=== PATIENT | female | born 1980 | race Two or more races ===

== ENCOUNTER 2020-01-19 16:46 | Emergency (ER) | payer MEDICAID ==
[~2020-01-19] VITALS: Ht 154.9 cm; Wt 75.7 kg
[~2020-01-19 16:46] MED LIST: KEFLEX500 MG ORAL; NKM; ZOFRAN ODT4 MG ORAL
[2020-01-19 17:44] VITALS: BP 114/82
[2020-01-19 17:56] LABS: BASOPHILS % (AUTO) 0.6 % (0.0-2.0); EOSINOPHILS % (AUTO) 0.5 % (0.0-3.0); HEMATOCRIT 39.2 % (37.0-47.0); HEMOGLOBIN 13.4 G/DL (12.0-16.0); LYMPHOCYTES % (AUTO) 18.6 % (20.0-45.0); MEAN CORPUSCULAR VOLUME 82 FL (80-99); MONOCYTES % (AUTO) 8.4 % (1.0-10.0); NEUTROPHILS % (AUTO) 71.9 % (45.0-75.0); PLATELET COUNT 394 K/UL (150-450); RED BLOOD COUNT 4.77 M/UL (4.20-5.40); RED CELL DISTRIBUTION WIDTH 13.1 % (11.6-14.8); WHITE BLOOD COUNT 7.5 K/UL (4.8-10.8)
[2020-01-19 18:10] LABS: ANION GAP 11 mmol/L (5-15); BLOOD UREA NITROGEN 18 mg/dL (7-18); CALCIUM 9.2 MG/DL (8.5-10.1); CARBON DIOXIDE 25 MMOL/L (21-32); CHLORIDE 103 MMOL/L (98-107); CREATININE 0.8 MG/DL (0.55-1.30); POTASSIUM 3.2 MMOL/L (3.5-5.1); SODIUM 139 MMOL/L (136-145)
[2020-01-19 18:15] LABS: ALANINE AMINOTRANSFERASE 38 U/L (12-78); ALBUMIN 3.1 G/DL (3.4-5.0); ALBUMIN/GLOBULIN RATIO 0.6 (1.0-2.7); ALKALINE PHOSPHATASE 90 U/L (46-116); ASPARTATE AMINO TRANSFERASE 26 U/L (15-37); BILIRUBIN,TOTAL 0.5 MG/DL (0.2-1.0)
[2020-01-19] MEDS ORDERED: PREDNISONE20 MG ORAL (18:57)
[2020-01-19] MEDS ORDERED: TYLENOL EXTRA500 MG ORAL (18:57)
[2020-01-19] MEDS ORDERED: ZITHROMAX250 MG ORAL (18:57)
[2020-01-19] MEDS ORDERED: VENTOLIN HFA18 GM INH (18:57)
[2020-01-19 19:00] VITALS: BP 104/90
--- NOTE | 2020-01-19 23:01 | Emergency Room Report ---
History of Present Illness General Chief Complaint: Upper Respiratory Illness Source: Patient Present Illness Allergies: Coded Allergies: No Known Allergies (Unverified , 10/29/11) COVID-19 Screening Contact w/high risk pt: No Experienced COVID-19 symptoms?: Yes COVID-19 Testing performed [employer]: Yes COVID-19 Screening: Negative COVID-19 COVID-19 Testing Source: 01/15 [place] Nursing Documentation-[facility] Past Medical History: No History, Except For Physical Exam Vital Signs Date Time Temp Pulse Resp B/P (MAP) Pulse Ox O2 Delivery O2 Flow Rate FiO2 01/19/20 17:18 98.4 91 20 114/82 (93) 93 Room Air Medical Decision Making Diagnostic Impression: Primary Impression: COVID-19 EKG Diagnostic Results Troponin ordered: Yes Rate: normal Rhythm: NSR ST Segments: no acute changes ASA given to the pt in ED: No Rhythm Strip Diag. Results EP Interpretation: yes Rhythm: NSR, no PVC's, no ectopy Last Vital Signs Date Time Temp Pulse Resp B/P (MAP) Pulse Ox O2 Delivery O2 Flow Rate FiO2 01/19/20 19:00 99.1 95 32 104/90 95 Room Air Disposition: HOME, SELF-CARE Condition: Stable Scripts Albuterol Sulfate (VENTOLIN HFA) 18 Gm Hfa.aer.ad 2 PUFFS INH EVERY 6 HOURS, #18 GM 0 Refills Prov: Alf Holguin MD 01/19/20 Acetaminophen* (TYLENOL EXTRA STRENGTH*) 500 Mg Tablet 500 MG ORAL Q8H PRN for Prn Headache/Temp > 101, #30 TAB 0 Refills Prov: Alf Holguin MD 01/19/20 Prednisone* (PREDNISONE*) 20 Mg Tablet 40 MG ORAL DAILY, #10 TAB Prov: Alf Holguin MD 01/19/20 Azithromycin* (ZITHROMAX*) 250 Mg Tablet 250 MG ORAL DAILY, #6 TAB 0 Refills Take two tables once daily for 1 day, then one tablet once daily for 4 days. Prov: Alf Holguin MD 01/19/20 Referrals: NOT CHOSEN IPA/,REFERRING (PCP) Brett [facility] Patient Instructions: Upper Respiratory Infection, Adult, [id number] Additional Instructions: purchase a pulse-oximeter. if you become short of breath and your oxygen level drops below 92% you need to come back to the ER. Alf Holguin MD Jan 19, 2020 23:01
--- NOTE | 2020-01-20 09:26 | Diagnostic Imaging Report ---
Indication: Cough Technique: Portable frontal view of the chest Comparison: None Findings: Patchy bilateral infiltrates are noted with a peripheral predilection. There is no pleural effusion or pneumothorax. Heart size within normal limits for AP technique. Mediastinal contours are sharp. No acute osseous anomaly. Surgical clips noted in the right upper quadrant suggesting prior cholecystectomy. Correlation with surgical history recommended. IMPRESSION: Patchy bilateral infiltrates concerning for multifocal pneumonia, particularly viral pneumonia. Clinical correlation and follow-up recommended
== END 2020-01-19 19:00 | disposition home or self-care (01) ==
LOC: EMR 17:39
DX: U07.1 COVID-19 (principal)
CPT/HCPCS: 36415; 71045; 80053; 84484; 85025; 93005; 96360; U0002; Z7502; 99284